=== PATIENT | female | born 1955 | race Caucasian/White ===

== ENCOUNTER 2016-09-18 05:16 | Inpatient (IN) | payer BC ==
[~2016-09-18] VITALS: Ht 165.1 cm; Wt 102.0 kg
[~2016-09-18 05:16] MED LIST: AMBIEN10 MG PO; ASCORBIC ACID500 M3 PO; ASPIR 8181 M1 PO; Ambien PO; BALANCE B-501 EAC1 PO; Ecotrin PO; FISH OIL 1,2001 EAC4 PO; FROVA2.5 MG PO; HAIR SKIN NAIL1 EACH PO; HYDROCHLOROTH12.5 M3 PO; Lopressor PO; MAGNESIUM400 M1 PO; METOPROLOL TART50 MG PO; MICROZIDE12.5 M1 PO; NAPROSYN500 MG PO; NAPROXEN500 MG PO; NEXIUM20 MG PO; NEXIUM40 MG PO; TOPROL XL50 MG PO; TYLENOL EXTRA500 MG PO; VITAMIN D35000 UNIT PO; VITAMIN E400 UNIT PO
[2016-09-18 06:21] VITALS: BP 130/80
[2016-09-18] MEDS ORDERED: PERCOCET 5/31 TABLET PO (10:10)
[2016-09-18 14:48] LABS: HEMATOCRIT 39.8 % (36.0-46.0)
[2016-09-18 17:54] VITALS: BP 102/56
[2016-09-18 19:40] VITALS: BP 107/62
[2016-09-18 23:32] VITALS: BP 99/58
[2016-09-19 03:27] VITALS: BP 104/55
[2016-09-19 06:38] LABS: HEMATOCRIT 36.9 % (36.0-46.0); MCH 29.5 PG (29.0-34.0); MCHC 32.5 G/DL (30.0-36.0); MCV 90.7 FL (83-99); MEAN PLAT.VOLUME 11.3 uM^3 (9.5-12.4); PLATELET COUNT 207 K/uL (156-360); RBC DIS.WIDTH-CV 14.5 % (11.8-14.6); RBC DIS.WIDTH-SD 48.3 % (39-53); RED BLOOD COUNT 4.07 M/uL (3.80-5.20); WHITE BLOOD COUNT 10.6 K/uL (4.1-10.2)
[2016-09-19 07:17] LABS: ANION GAP 6 MEQ/L (2-14); CHLORIDE 103 MEQ/L (99-109); GFR ESTIMATE (CALCULATED) > 59 mL/min/; GLUCOSE 108 mg/dL (70-99); SAMPLE HEMOLYSIS CHECK 0; SAMPLE ICTERIC CHECK 0; SAMPLE LIPEMIA CHECK 0; SODIUM 139 MEQ/L (136-147); UREA NITROGEN (BUN) 12 mg/dL (9-23)
[2016-09-19 07:56] VITALS: BP 99/53
[2016-09-19 12:18] VITALS: BP 88/52
[2016-09-19 18:10] VITALS: BP 101/50
[2016-09-19 19:24] VITALS: BP 112/60
[2016-09-19 23:18] VITALS: BP 112/56
[2016-09-20 03:39] VITALS: BP 113/54
[2016-09-20 07:14] VITALS: BP 95/55
[2016-09-20 11:49] VITALS: BP 99/59
[2016-09-20 16:02] VITALS: BP 115/59
[2016-09-20 19:57] VITALS: BP 111/58
[2016-09-20 23:15] VITALS: BP 103/55
[2016-09-21 04:31] VITALS: BP 104/63
[2016-09-21 07:00] VITALS: BP 92/55
[2016-09-21 07:57] VITALS: BP 99/59
[2016-09-21 11:01] VITALS: BP 110/60
== END 2016-09-21 14:43 | disposition home or self-care (01) | DRG 983 ==
LOC: 2SOUTH 05:16 → 5EAST 16:20
PROVIDERS: Urology
PROC: 0TB10ZZ Excision of Left Kidney, Open Approach (ICD-10-PCS; principal; 2016-09-18)
DX: D17.71 Benign lipomatous neoplasm of kidney (principal); G47.30 Sleep apnea, unspecified; I10 Essential (primary) hypertension; I48.91 Unspecified atrial fibrillation; M79.7 Fibromyalgia; D86.9 Sarcoidosis, unspecified; E78.5 Hyperlipidemia, unspecified; K21.9 Gastro-esophageal reflux disease without esophagitis; K76.0 Fatty (change of) liver, not elsewhere classified; N39.3 Stress incontinence (female) (male); E66.9 Obesity, unspecified; E04.2 Nontoxic multinodular goiter; G47.00 Insomnia, unspecified; Z79.82 Long term (current) use of aspirin; Z68.37 Body mass index [BMI] 37.0-37.9, adult
CPT/HCPCS: 80048; 85014; 85018; 85027; 86900; 86901; 88304; 88305; 88341 TC; 88342 TC; 94799; J0131; J0330; J0690; J1170; J1885; J2150; J2405; J2710; J3010; J7120